=== PATIENT | female | born 1955 | race Hispanic/Latino ===

== ENCOUNTER 2019-01-10 07:28 | Day surgery (SDC) | payer BC ==
[2019-01-03 15:56] VITALS: BMI 38.9
[2019-01-10] MEDS ORDERED: Propofol 10 mg/ml Inj (20 ML) ONE ×2 (09:29→10:16)
[2019-01-10] MEDS ORDERED: Lidocaine PF 2% (5 ml) Inj (For Cardiac Arrhy) ONE (09:40)
[2019-01-10] MEDS ORDERED: Sodium Chloride 0.9% 1,000 ML IV SCH (10:30)
[2019-01-10 10:32] VITALS: TEMP 98
[2019-01-10 14:08] VITALS: BP 143/73; PULSE 68; RESP 16; O2SAT 100
== END 2019-01-10 12:04 | disposition home or self-care (01) ==
LOC: ENDO 07:28
PROVIDERS: ATTEND Internal Medicine Gastroenterology
DX: K62.5 Hemorrhage of anus and rectum (principal); K64.1 Second degree hemorrhoids; K22.10 Ulcer of esophagus without bleeding; K29.70 Gastritis, unspecified, without bleeding; K29.80 Duodenitis without bleeding; K25.9 Gastric ulcer, unspecified as acute or chronic, without hemorrhage or perforation; K21.0 Gastro-esophageal reflux disease with esophagitis; I10 Essential (primary) hypertension; E78.5 Hyperlipidemia, unspecified; J44.9 Chronic obstructive pulmonary disease, unspecified; Q43.8 Other specified congenital malformations of intestine; Z86.010 Personal history of colon polyps
CPT/HCPCS: 43235; 45378; 88305; 88342; J2704; J3010; J7030